=== PATIENT | male | born 1990 ===

== ENCOUNTER 2017-01-28 14:35 | Emergency (ER) | payer BC, OTHER ==
[2017-01-28 14:36] VITALS: BMI 32.3
[2017-01-28 14:48] VITALS: BP 148/70; PULSE 71; RESP 18; TEMP 97; O2SAT 97
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
--- NOTE | 2017-01-28 16:50 | RAD ---
PROCEDURE: Cervical Spine Radiographs. HISTORY: Pain. COMPARISON: None. FINDINGS: BONES: Normal curvature is appreciated there is no spondylolisthesis identified. The lateral view the dens is unremarkable with C1-2 articulation appear normal. Prevertebral soft tissues appear diffusely unremarkable. DISC SPACES: Vertebral body disc interspace heights appear normal. SOFT TISSUES: Normal. No prevertebral soft tissue swelling. OTHER FINDINGS: None. IMPRESSION: Unremarkable cervical spine as imaged. If symptoms persist or worsen follow-up CT is advised.
== END 2017-01-28 17:18 | disposition home or self-care (01) ==
LOC: H.ER 14:35
DX: M54.2 Cervicalgia (principal); V43.52XA Car driver injured in collision with other type car in traffic accident, initial encounter; Y92.410 Unspecified street and highway as the place of occurrence of the external cause